=== PATIENT | male | born 1965 | race Caucasian/White ===

== ENCOUNTER 2023-08-09 09:53 | Emergency (ER) | payer BC, SELFPAY ==
[2023-08-09 10:02] VITALS: BP 115/73
[2023-08-09 10:13] VITALS: BMI 31.6
[2023-08-09 10:17] VITALS: BP 120/81
[2023-08-09 10:35] LABS: % Basophils 0.7 % (0-2); % Eosinophils 2.3 % (0-6); % Immature Granulocytes 0.7 % (0-0.5); % Lymphocytes 17.7 % (20.5-51.1); % Monocytes 8.3 % (1.7-9.3); % Neutrophils 70.3 % (42.2-75.2); Absolute Basophils 0.1 10^3/uL (0-0.2); Absolute Eosinophils 0.2 10^3/uL (0-0.7); Absolute Immature Granulocytes 0.1 10^3/uL (0-0.05); Absolute Lymphocytes 1.7 10^3/uL (1.2-3.4); Absolute Monocytes 0.8 10^3/uL (0.1-0.6); Absolute Neutrophils 6.8 10^3/uL (1.4-6.5); Hematocrit 36.5 % (39.0-52.0); Hemoglobin 12.6 g/dL (13.0-18.0); Mean Corp Hgb Conc. 34.5 g/dL (33.0-37.0); Mean Corpuscular Hgb 29.4 pg (27.0-31.0); Mean Corpuscular Volume 85.1 fL (80.0-94.0); Mean Platelet Volume 8.6 fL (7.4-10.4); Nucleated Red Blood Cells % 0 % (-); Platelet Count 329 10^3/uL (130-400); Red Blood Cell Count 4.29 10^6/uL (4.70-6.10); Red Cell Dist. Width 14.4 % (11.5-14.5); White Blood Cell Count 9.7 10^3/uL (4.8-10.8)
--- NOTE | 2023-08-09 10:43 | ED.GENMED ---
History of Present Illness
General
Chief Complaint: Breathing Problem
Time Seen by Provider: 08/09/23 10:21
Travel History
Have you had any contact with someone who has COVID-19?: No
Do you have any symptoms of coronavirus? Fever > 100 degrees, chills, cough, shortness of breath, sore throat, loss of taste or smell, muscle aches, or headache?: No
History of Present Illness
History of Present Illness:
58-year-old male with history of coronary artery disease, hypertension, hyperlipidemia presents the emergency department for evaluation of pleuritic right flank pain and shortness of breath that began yesterday and worsened today. He is 6 weeks
status post CABG. he just began cardiac rehab this week but was referred here from most recent evaluation due to his symptoms. He denies any anterior chest pain. Does feel as though the pain is worse in the back when lying flat. No fevers or
chills.
Past History
Past History
ED Past Medical History: CVA, Hypothyroidism, Other ('Lyme's disease') and Other (right arm pain beginning 2018)
ED Past Surgical History: Appendectomy and Orthopedic (left knee surgery)
Social History
Tobacco: Non-smoker
Alcohol: Occasional
Personal:
Living: with family
Employment: Employed
Family History
Family History: CAD (in mother at age 59)
Review of Systems
Review of Systems
Allergies reviewed?: Yes
All Other Systems: ROS reviewed and negative except as documented in HPI and ROS
Phy Exam
Physical Exam
Physical Exam:
GEN: Well appearing, NAD, WDWN
Eyes: PERRLA, EOMs intact, no scleral icterus
HENT: NCAT, oral mucosa moist, no JVD, no cervical adenopathy.
Lungs: CTAB, no wheezes, rales, rhonchi, normal chest wall excursion
Cardiac: RRR, no M/R/G, no peripheral edema. Radial pulses 2+ bilat
Abdomen: S, NT, ND, NABS, no masses or hepatosplenomegaly
Neuro: AO x 3, no focal deficits to BUE/BLE, normal sensation throughout
MSK: No gross deformity or ecchymosis. No edema. No digital clubbing
Skin: No rashes, petechiae. Normal color, no pallor or jaundice.
Psych: Calm, cooperative, proper hygiene
Scores
Heart Failure Risk
Heart Failure Risk Score: Not Applicable
Course
Orders/Labs/Results
Orders:
Orders
08/09/23 10:29
Basic Metabolic Panel Urgent
Complete Blood Count/With Diff Urgent
08/09/23 10:40
Electrocardiogram (*1) Urgent
Reason for Study: Chest Pain
EKG- Treatment ONCE
CR Chest - 2 Views Urgent
Comment:
Reason For Exam: R lower chest pain
08/09/23 11:20
Troponin I Urgent
08/09/23 11:49
CT Chest Pe Study Urgent
Comment:
Reason For Exam: pleuritic R chest pain, 6 wk s/p CABG
08/09/23 11:57
Potassium Urgent
Troponin I Urgent
Abnormal Lab Results
08/09/23
10:29
RBC 4.29 L 10^6/uL
(4.70-6.10)
Hgb 12.6 L g/dL
(13.0-18.0)
Hct 36.5 L %
(39.0-52.0)
Abs Immat Gran (auto) 0.1 H 10^3/uL
(0-0.05)
Absolute Neuts (auto) 6.8 H 10^3/uL
(1.4-6.5)
Absolute Monos (auto) 0.8 H 10^3/uL
(0.1-0.6)
Immature Gran % 0.7 H %
(0-0.5)
Lymphocytes % 17.7 L %
(20.5-51.1)
08/09/23 10:29
08/09/23 11:57
Vital Signs
Initial and Last Documented VS:
Initial Vital Signs
Temp Pulse Resp BP Pulse Ox
98.0 F 96 16 115/73 96
08/09/23 10:02 08/09/23 10:02 08/09/23 10:02 08/09/23 10:02 08/09/23 10:02
Last Documented Vital Signs
Temp Pulse Resp BP Pulse Ox
98.0 F 89 15 119/73 96
08/09/23 10:02 08/09/23 13:00 08/09/23 13:00 08/09/23 12:00 08/09/23 13:00
MDM/Problems Addressed
MDM/Problems Addressed:
The patient's focal lateral posterior chest pain concerning for pulmonary embolism in the aftermath of her recent major cardiac surgery. Pneumonia and pleural effusion also considered. Initial workup reveals atelectasis versus pneumonia in the
right middle lobe, given that this is not a clear abnormality patient was then sent for a CT of the chest to rule out PE, fortunately no PE was identified however there is no further clarity in regards to the right middle lobe abnormality. Would
favor that this could represent a pneumonia given his symptoms associated with it as opposed to atelectasis. He has noted to have a pericardial effusion however has no anterior chest pain that would suggest that this is the etiology. Will treat
the patient with high-dose amoxicillin for presumed community-acquired pneumonia and advise outpatient primary care follow-up if symptoms persist. If symptoms worsen he is encouraged to return the emergency department as he may require
echocardiogram to reassess the pericardial effusion but again I do not feel that this represents the patient's source of symptoms
Comment
Comment:
EKG independently interpreted by me shows normal sinus rhythm at a rate of [address] changes concerning for ischemia
*Critical Care Note
Total Time (30-74mins, 75-104mins- exclusive of procedures): Not Applicable
ED Attending Note
-
Portions of this chart may have been created with voice recognition software.� Occasional wrong word or��sound alike� substitutions may have occurred due to the inherent limitations of voice recognition software.
Discharge Plan
Departure
Patient Disposition: Home (Routine Discharge)
Date of Disposition: 08/09/23
Time of Disposition: 13:04
Patient with high blood pressure during this ER visit?: Yes
Discharge Problem:
Chest pain, pleuritic, Abnormal CT scan, chest
Instructions: How to Use an Incentive Spirometer, Chest Pain, Adult ED
Prescriptions:
New
amoxicillin 500 mg tablet
2,000 mg PO BID 5 Days Qty: 40 0RF
No Action
aspirin 81 MG tablet,chewable
81 mg PO DAILY 0RF
Rx Instructions:
can have OTC baby ASA daily
metformin 500 mg Tablet
500 mg PO BID
levothyroxine 137 mcg Tablet
137 mcg PO DAILY
Mounjaro 5 mg/0.5 mL Pen Injector
10 mg SC QWEEK
ergocalciferol (vitamin D2) 50,000 UNITS capsule
50,000 units PO DAILY
ascorbic acid (vitamin C) [Vitamin C] 500 mg Tablet
500 mg PO DAILY
vitamin W79-fsicy acid 500-400 mcg Tablet
1 tab PO DAILY
Rx Instructions:
administer with a meal
atorvastatin [Lipitor] 80 mg Tablet
80 mg PO QPM
coenzyme Q10 [Co Q-10] 100 mg Capsule
100 mg PO DAILY
metoprolol succinate [Toprol XL] 25 mg tablet extended release 24 hr
25 mg PO DAILY Qty: 30 5RF
Neuriva Original
2 tab PO HS
zinc
2 ophthalmic insert PO HS
cyclobenzaprine 10 mg Tablet
5 mg PO BID PRN (Reason: muscle spasms ) Qty: 30 0RF
lidocaine 4 % Adhesive Patch,Medicated
1 patch topical DAILY PRN (Reason: incision pain) Qty: 30 0RF
Rx Instructions:
Apply to back, or above and below incision. May cut patch in half, remove nightly
guaifenesin 600 mg Tablet Extended Release 12hr
600 mg PO Q12 PRN (Reason: Congestion) Qty: 0 0RF
Rx Instructions:
Please purchase [id number]
clopidogrel 75 mg Tablet
75 mg PO DAILY Qty: 30 1RF
pantoprazole 40 mg Tablet,Delayed Release (Dr/Ec)
40 mg PO DAILY Qty: 30 0RF
Rx Instructions:
GI proph w/ Plavix. Take for 30 days, discuss continuing/refills with PCP/cardiology
Remove Patch [Remove Lidocaine Patch]
1 patch topical DAILY@2000 Qty: 30 0RF
oxycodone 5 mg Tablet
5 mg PO .Q6H PRN PRN (Reason: moderate to severe pain ) Qty: 28 0RF
Rx Instructions:
Ongoing pain control. Attending physician Dr. Robert Cuellar MD.
acetaminophen 325 mg Tablet
650 mg PO Q4HPRN PRN (Reason: mild pain,headache,temp >101F ) Qty: 0 0RF
Rx Instructions:
Please purchase [id number]
Referrals:
Leslie Lazaro MD [Family Provider] -
Activity Restrictions/Additional Instructions:
As we discussed, the cause of your pain is not clear. It could be pneumonia, and we will treat you with antibiotics.
There is fluid around your heart on the CT scan; your pain does not clearly suggest this fluid is related, however if you have worsening pain despite antibiotics and incentive spirometer use, please return to the ER for re-evaluation
Contact your primary care physician for a repeat CT scan of the chest in 3-6 months to assess for resolution of the abnormality on your right lower lung
Interventions
Interventions:
*Risk Screen - Suicide Last Done: 08/09/23 10:13
*General Assessment Last Done: 08/09/23 10:13
*Neglect/Abuse Screening Last Done: 08/09/23 10:13
ED- Fall Risk Assessment Last Done: 08/09/23 12:10
*ED COVID-19 Vaccine History Last Done: 08/09/23 10:02
*Nursing Disposition Last Done: 08/09/23 13:18
ED- Cardiac Assessment Last Done: 08/09/23 10:13
ED- Pulmonary Assessment Last Done: 08/09/23 10:13
Discharge Date and Time
Discharge Date/Time: 08/09/23 13:19
[2023-08-09 11:00] VITALS: BP 115/69
[2023-08-09 11:00] LABS: Blood Urea Nitrogen 18 mg/dl (9-20); Calcium 9.4 mg/dl (8.4-10.2); Carbon Dioxide 24 mmol/L (22-30); Chloride 104 mmol/L (98-107); Estimated Creatinine Clearance > 125 ml/min; Glucose 97 mg/dl (70-99); Sodium 136 mmol/L (135-145); eGFR > 60.00
[2023-08-09 11:18] VITALS: BP 113/76
[2023-08-09 12:00] VITALS: BP 119/73
[2023-08-09 12:20] LABS: Potassium 4.5 mmol/L (3.5-5.1)
[2023-08-09 12:33] LABS: Troponin I < 0.012 ng/ml
== END 2023-08-09 13:19 | disposition home or self-care (01) ==
LOC: EMR 09:53
PROVIDERS: Physician Assistant; EMERGENCY PHYSICIAN Emergency Medicine; FAMILY PHYSICIAN Family Medicine
DX: R07.89 Other chest pain (principal); R94.8 Abnormal results of function studies of other organs and systems
CPT/HCPCS: 99285; 71046; 71275; 80048; 84132; 84484; 85025; 93005; Q9967

== ENCOUNTER 2023-08-16 09:38 | Outpatient (RCR) | payer BC, SELFPAY ==
[2023-08-03 14:50] LABS: Glucose - Point of Care 109 mg/dl (70-99)
[2023-08-03 15:17] LABS: Glucose - Point of Care 116 mg/dl (70-99)
[2023-08-14 09:32] LABS: Glucose - Point of Care 120 mg/dl (70-99)
[2023-08-14 10:19] LABS: Glucose - Point of Care 99 mg/dl (70-99)
[2023-08-16 09:31] LABS: Glucose - Point of Care 109 mg/dl (70-99)
[2023-08-16 10:21] LABS: Glucose - Point of Care 99 mg/dl (70-99)
== END 2023-08-16 23:59 | disposition home or self-care (01) ==
LOC: CRHB 09:38
PROVIDERS: ATTENDING PHYSICIAN Internal Medicine Cardiovascular Disease
DX: Z95.1 Presence of aortocoronary bypass graft (principal)
CPT/HCPCS: 82962; 93797; 93798

== ENCOUNTER 2023-09-15 17:47 | Outpatient (RCR) | payer BC, SELFPAY ==
[2023-08-18 09:22] LABS: Glucose - Point of Care 122 mg/dl (70-99)
[2023-08-18 10:40] LABS: Glucose - Point of Care 95 mg/dl (70-99)
[2023-08-21 17:06] LABS: Glucose - Point of Care 100 mg/dl (70-99)
[2023-08-21 18:06] LABS: Glucose - Point of Care 93 mg/dl (70-99)
[2023-08-23 17:18] LABS: Glucose - Point of Care 123 mg/dl (70-99)
[2023-08-23 18:22] LABS: Glucose - Point of Care 92 mg/dl (70-99)
== END 2023-09-15 23:59 | disposition home or self-care (01) ==
LOC: CRHB 17:47
PROVIDERS: ATTENDING PHYSICIAN Internal Medicine Cardiovascular Disease
DX: Z95.1 Presence of aortocoronary bypass graft (principal); I25.10 Atherosclerotic heart disease of native coronary artery without angina pectoris
CPT/HCPCS: 82962; 93797; 93798

== ENCOUNTER 2023-10-16 18:22 | Outpatient (RCR) | payer BC, SELFPAY | END 2023-10-16 23:59 | disposition home or self-care (01) | LOC: CRHB 18:22 | PROVIDERS: ATTENDING PHYSICIAN Internal Medicine Cardiovascular Disease | DX: I25.10 Atherosclerotic heart disease of native coronary artery without angina pectoris (principal); Z95.1 Presence of aortocoronary bypass graft; Z95.4 Presence of other heart-valve replacement | CPT/HCPCS: 93797; 93798; G0422 ==

== ENCOUNTER → 2024-06-14 12:56 | Outpatient (REF) | payer BC, SELFPAY ==
--- NOTE | 2024-06-14 14:00 | CARDSERVDEF ---
Echocardiogram with Definity completed after protocol screening completed. Allergies verified.
Patent IV site: ___R AC__
IV site flushed with 0.9% NaCl pre and post administration.
Diluted bolus method utilized to enhance visualization of ventricular jauregui.
Total volume given: __5__ mL
Patient tolerated all procedures well without complications.
== END ==
LOC: RCS 12:56
PROVIDERS: ATTENDING PHYSICIAN Internal Medicine Cardiovascular Disease; FAMILY PHYSICIAN Family Medicine
DX: R06.09 Other forms of dyspnea (principal)
CPT/HCPCS: 93017; 93350

== ENCOUNTER → 2024-06-28 08:09 | Outpatient (REF) | payer BC, SELFPAY | LOC: HWRAD 08:09 | PROVIDERS: ATTENDING PHYSICIAN Nurse Practitioner Family; FAMILY PHYSICIAN Family Medicine | DX: R93.89 Abnormal findings on diagnostic imaging of other specified body structures (principal) | CPT/HCPCS: 71250 ==